=== PATIENT | female | born 1950 | race Caucasian/White ===

== ENCOUNTER 2018-04-21 09:51 | Observation (INO) | payer MEDICARE ==
[~2018-04-21] VITALS: Ht 162.6 cm; Wt 73.5 kg
[~2018-04-21 09:51] MED LIST: (None)10 MG OR; ASPIRIN EC81 MG PO; ATIVAN1 M1 OR; ATIVAN1 MG PO; CELEXA20 MG OR; CHILD ASA81 MG OR; CIPRO500 MG OR; CRESTOR10 MG PO; ELAVIL25 MG PO; LEVEMIR SC; LEXAPRO10 MG PO; LEXAPRO20 MG OR; LEXAPRO20 MG PO; LISINOPRIL10 MG PO; LORTAB 1010 MG PO; METFORMIN1000 MG PO; METFORMIN500 M1 OR; METFORMIN500 M2 PO; METOPROL TAR25 MG OR; METOPROL TAR25 MG PO; NOVOLIN 70/30 SC; NOVOLIN N1000 UNITS SC; NOVOLIN R IJ; NOVOLIN R1000 UNITS SC; NOVOLIN SC; NOVOLOG MIX100 U/ML SC; NOVOLOG100 IU/1 M SC; PRAVACHOL40 MG OR; PRINIVIL5 MG OR
--- NOTE | 2018-04-21 10:09 | NUR ---
PATIENT AMBULATED TO ROOM WITH STEADY GAIT AND PHYSICIAN AT BEDSIDE FOR EVAL
[2018-04-21] MEDS ORDERED: TRESIBA FL100 UNIT/M SC (10:23)
[2018-04-21] MEDS ORDERED: ATIVAN0.5 MG PO (10:27)
[2018-04-21] MEDS ORDERED: VITAMIN D2000 UNI2 PO (10:28)
--- NOTE | 2018-04-21 10:28 | NUR ---
SBAR PRINTED TO FLOOR
--- NOTE | 2018-04-21 10:56 | NUR ---
Report given to GEORGE Bowden on MS.
--- NOTE | 2018-04-21 11:29 | NUR ---
Admission Note Report Given to: GEORGE STONE Transported by: X Wheelchair Stretcher Transported with: X Nurse Transporter X Patent IV O2 Child Care Development Specialist Pt. to MS via w/c awake and alert. No distress noted. IV patent. Site w/o redness and swelling
--- NOTE | 2018-04-21 11:35 | NUR ---
PT ADMITTED TO MED SURG ROM 280 VIA WHEELCHAIR FROM E.R. 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 WILL DISCUSS WITH MD ON ROUNDS, PT ALSO HAS A 24 HR GLUCOSE MONITORING SYSTEM IN PLACE, CURRENT BS IS 263 PER HER MONITOR. DECLINES OUR FINGER STICKS AT THIS TIME. CALL KEYES WITHIN REACH, ENCOURAGED TO CALL FOR ANY NEEDED ASSISTANCE, SPOUSE AT BEDSIDE, WILL CONTINUE TO MONITOR.
[2018-04-21 11:47] VITALS: BP 165/91
--- NOTE | 2018-04-21 12:15 | NUR ---
SET UP ASSIST PROVIDED FOR AFTERNOON MEAL.
--- NOTE | 2018-04-21 12:40 | NUR ---
INTO SEE PATIENT, PLAN OF CARE DISCUSSED, CALL KEYES WITHIN REACH, SPOUSE REMAINS AT BEDSIDE.
--- NOTE | 2018-04-21 14:30 | NUR ---
PT RESTING IN BED. OFFERS NO NEW COMPLAINTS, CALL KEYES WITHIN REACH, WILL CONTINUE TO MONITOR.
[2018-04-21 15:17] VITALS: BP 152/81
--- NOTE | 2018-04-21 16:26 | NUR ---
PT RESTING, EDUCATED REGARDING PAINMEDICATION PRN STATUS AND HER NEED TO REQUEST, PT VERBALIZES UNDERSTANDING AND STATES THAT SHE IS OK RIGHT NOW, NO CHANGE IN REPS STATUS, O2 REMAINS IN PLACE VIA NC, CALL KEYES WITHIN REACH
--- NOTE | 2018-04-21 17:57 | NUR ---
SET UP ASSIST PROVIDED FOR PM MEAL
[2018-04-21 19:12] VITALS: BP 152/71
--- NOTE | 2018-04-21 19:41 | NUR ---
BEDSIDE REPORT RECEIVED FROM GEORGE SCHROEDER. PT SITTING UP IN BED WITH VISITOR AT BEDSIDE; ALERT AND ORIENTED. C/O LEFT RIB PAIN 02/17; TORADOL GIVEN THROUGH IV; IV INFILTRATED DURING FLUSH AND REMOVED. RESPIRATIONS EVEN AND UNLABORED ON OXYGEN; EDUCATED ON TCDB AND TO CALL FOR ANY SOB OR CHANGE IN RESPIRATORY STATUS. PLAN OF CARE DISCUSSED. PT ENCOURAGED TO VERABLIZE CONCERNS. STATES UNDERSTANDING. SAFETY MEASURES IN PLACE. CALL LIGHT WITHIN REACH.
--- NOTE | 2018-04-21 20:07 | NUR ---
PT CURRENTLY DECLINING IV; TORADOL ORDER CHANGED TO IM PER .
--- NOTE | 2018-04-21 20:53 | NUR ---
PT HAS SELF BLOOD GLUCOSE MONITOR; CURRENTLY READS 206. PT STATES THAT SHE SELF ADMINISTERED 3 UNITS OF NOVOLOG. STATES THAT SHE WILL MANAGE HER BLOOD SUGARS SHE DOES AT HOME.
--- NOTE | 2018-04-22 00:01 | NUR ---
PT SITTING UP IN BED AWAKE; REQUESTED DECAF COFFEE. DENIES PAIN AND SOB. RESPIRATIONS EVEN AND UNLABORED ON OXYGEN. PT REMAINS WITHOUT IV SITE; AWARE OF PT'S DECLINE FOR NEW ONE AT THIS TIME. STAND BY ASSIST TO BATHROOM PT HAS VOIDED ONCE TODAY, SHE STATES THIS IS NORMAL FOR HER. SAFETY MEASURES IN PLACE. CALL LIGHT WITHIN REACH.
[2018-04-22 04:00] VITALS: BP 168/72
[2018-04-22 05:15] LABS: HEMATOCRIT 36.7 % (37.0-47.0); HEMOGLOBIN 12.2 g/dl (12.0-16.0); IMMATURE GRANULOCYTES 0.2 % (0.0-5.0); MEAN CELL VOLUME 93.1 fL CALC (80.0-100.0); MEAN CORPUSCULAR HGB CONC 33.2 g/L CALC (32.0-36.0); NEUT# 2.31 thou/uL (2.00-7.15); RED BLOOD COUNT 3.94 mill/uL (4.20-5.60); RED CELL DISTRI WIDTH 13.2 % (11.5-15.5)
--- NOTE | 2018-04-22 05:31 | NUR ---
PT BACK TO UNIT FROM 2V CXR; TRANSPORTED VIA WHEELCHAIR WITH [facility] STAFF; TOLERATED WELL. NO CHANGES IN CONDITION THROUGHOUT THE NIGHT. NO REQUESTS OR CONCERNS AT THIS TIME. CALL LIGHT WITHIN REACH.
[2018-04-22 05:41] LABS: ALBUMIN 2.9 g/dL (3.2-5.0); ALKALINE PHOSPHATASE 62 u/l (38-126); ANION GAP 11 (6-22 (CALC)); BILIRUBIN, TOTAL 0.5 mg/dL (0.0-1.4); BUN 10 mg/dL (8-23); BUN/CREATININE RATIO 19 (12-20 (CALC)); CARBON DIOXIDE 29 mmol/l (22-30); CHLORIDE 101 mmol/l (95-108); CREATININE 0.5 mg/dL (0.5-1.0); GFR > 60 ML/MIN (>=60 (CALC)); GFR FOR AFR.AMER. > 60 ML/MIN (>=60 (CALC)); MAGNESIUM 1.5 mg/dL (1.6-2.3); POTASSIUM 4.4 mmol/l (3.5-5.1); SGOT/AST 18 u/l (9-36); SGPT/ALT 21 u/l (11-66); SODIUM 136 mmol/l (137-146); TOTAL PROTEIN 5.3 g/dL (6.3-8.2)
--- NOTE | 2018-04-22 07:55 | NUR ---
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 O2 REMAINS IN USE AT 2L; CXR COMPLETED THIS AM AWAITING RESULTS, CALL KEYES WITHIN REACH; INSTRUCTED TO CALL FOR ANY NEEDED ASSISTANCE; SPOUSE AT BEDSIDE; SET UP ASSIST PROVIDED FOR AM MEAL.
--- NOTE | 2018-04-22 08:59 | NUR ---
AMBULATES IN ROOM TO BATHROOM WITH STEADY GAIT; SPOUSE REMAINS AT BEDSIDE, CALL KEYES WITHIN REACH
--- NOTE | 2018-04-22 09:43 | NUR ---
PT MEDICATED WITH TYLENOL PER HER REQUEST, SPOKE WITH PT REGARDING D/C PROCESS, AND FOLLOW CARE, SPOUSE REMAINS AT BEDSIDE, WILL CONTINUE TO MONITOR.
--- NOTE | 2018-04-22 11:12 | NUR ---
into see patient
--- NOTE | 2018-04-22 12:35 | NUR ---
SCRIPTS FOR DILAUDID, IBUPROFEN AND NEURONTIN GIVEN TO PT ALONG WITH I.S. AND INSTRUCTIONS ON USE, PT TO [facility] Evan CRISTINA NEXT FRIDAY.
--- NOTE | 2018-04-22 13:41 | NUR ---
SPOUSE REAMINS AT BEDSIDE, SLIGHTLY AGITATED AWAITING D/C ORDERS. COMFORT MEASURES PROVIDED, WILL CONTINUE TO MONITOR.
--- NOTE | 2018-04-22 13:56 | NUR ---
Discharge instructions given. Patient verbalizes understanding of same. Discharged in stable condition via Wheelchair to Home with Spouse. All belongings sent with pt.
== END 2018-04-22 13:58 | disposition home or self-care (01) ==
LOC: ED 09:51 → ED-I 10:17 → ED 10:17 → MS2 10:43
PROVIDERS: ADMIT Internal Medicine Nephrology; ATTEND Internal Medicine Nephrology
DX: S27.0XXA Traumatic pneumothorax, initial encounter (principal); T79.7XXA Traumatic subcutaneous emphysema, initial encounter; S22.42XA Multiple fractures of ribs, left side, initial encounter for closed fracture; I10 Essential (primary) hypertension; E10.9 Type 1 diabetes mellitus without complications; E78.5 Hyperlipidemia, unspecified; F32.9 Major depressive disorder, single episode, unspecified; E55.9 Vitamin D deficiency, unspecified; W19.XXXA Unspecified fall, initial encounter; Z98.84 Bariatric surgery status
CPT/HCPCS: J1650

== ENCOUNTER 2018-05-20 05:01 | Emergency (ER) | payer MEDICARE ==
[~2018-05-20] VITALS: Ht 162.6 cm; Wt 75.2 kg
[~2018-05-20 05:01] MED LIST changes: +ATIVAN0.5 MG PO; +TRESIBA FL100 UNIT/M SC; +VITAMIN D2000 UNI2 PO
[2018-05-20 05:35] LABS: URINE BILIRUBIN - DIPSTICK NEGATIVE (NEGATIVE); URINE BLOOD DIPSTICK LARGE (NEGATIVE); URINE COLOR YELLOW; URINE GLUCOSE - DIPSTICK NEGATIVE (NEGATIVE); URINE KETONE NEGATIVE (NEGATIVE); URINE NITRITE - DIPSTICK NEGATIVE (Negative); URINE PROTEIN - DIPSTICK 30 mg/dL (NEG-TRACE); URINE UROBILINOGEN - DIPSTICK 0.2 E.U./dL (0.2)
[2018-05-20 05:36] LABS: URINE CLARITY TURBID; URINE LEUK ESTERASE SMALL (NEGATIVE)
[2018-05-20 05:42] LABS: URINE BACTERIA FEW hpf; URINE SQUAMOUS EPITHELIAL CELL MODERATE EPI/hpf (0-FEW)
[2018-05-20] MEDS ORDERED: PYRIDIUM200 MG PO (06:03)
[2018-05-20] MEDS ORDERED: CIPROFLOXACN500 MG PO (06:03)
[2018-05-20 06:15] VITALS: BP 164/68
== END 2018-05-20 06:15 | disposition home or self-care (01) ==
LOC: ED 05:01
PROVIDERS: Emergency Medicine
DX: N39.0 Urinary tract infection, site not specified (principal); E11.9 Type 2 diabetes mellitus without complications; I10 Essential (primary) hypertension; B96.20 Unspecified Escherichia coli [E. coli] as the cause of diseases classified elsewhere

== ENCOUNTER 2018-06-20 13:46 | Emergency (ER) | payer MEDICARE ==
[~2018-06-20] VITALS: Ht 162.6 cm; Wt 75.0 kg
[~2018-06-20 13:46] MED LIST changes: +CIPROFLOXACN500 MG PO; +PYRIDIUM200 MG PO
[2018-06-20 15:53] LABS: URINE BILIRUBIN - DIPSTICK NEGATIVE (NEGATIVE); URINE BLOOD DIPSTICK TRACE-INTACT (NEGATIVE); URINE CLARITY CLEAR; URINE COLOR YELLOW; URINE GLUCOSE - DIPSTICK >=1000 mg/dL (NEGATIVE); URINE KETONE NEGATIVE (NEGATIVE); URINE LEUK ESTERASE NEGATIVE (NEGATIVE); URINE NITRITE - DIPSTICK NEGATIVE (Negative); URINE PROTEIN - DIPSTICK NEGATIVE (NEG-TRACE); URINE SPECIFIC GRAVITY 1.015; URINE UROBILINOGEN - DIPSTICK 0.2 E.U./dL (0.2)
[2018-06-20 16:01] LABS: HEMATOCRIT 40.9 % (37.0-47.0); HEMOGLOBIN 13.2 g/dl (12.0-16.0); MEAN CELL VOLUME 95.8 fL CALC (80.0-100.0); MEAN CORPUSCULAR HGB 30.9 pG CALC (26.0-32.0); MEAN CORPUSCULAR HGB CONC 32.3 g/L CALC (32.0-36.0); NEUT# 3.46 thou/uL (2.00-7.15); RED BLOOD COUNT 4.27 mill/uL (4.20-5.60); RED CELL DISTRI WIDTH 12.6 % (11.5-15.5)
[2018-06-20 16:07] LABS: ALBUMIN 3.7 g/dL (3.2-5.0); ALKALINE PHOSPHATASE 66 u/l (38-126); ANION GAP 9 (6-22 (CALC)); BILIRUBIN, TOTAL 0.4 mg/dL (0.0-1.4); BUN 10 mg/dL (8-23); BUN/CREATININE RATIO 15 (12-20 (CALC)); CARBON DIOXIDE 30 mmol/l (22-30); CHLORIDE 106 mmol/l (95-108); CREATININE 0.6 mg/dL (0.5-1.0); GFR > 60 ML/MIN (>=60 (CALC)); GFR FOR AFR.AMER. > 60 ML/MIN (>=60 (CALC)); POTASSIUM 4.8 mmol/l (3.5-5.1); SGOT/AST 22 u/l (9-36); SODIUM 140 mmol/l (137-146); TOTAL PROTEIN 6.3 g/dL (6.3-8.2)
[2018-06-20 16:46] VITALS: BP 185/70
[2018-06-20] MEDS ORDERED: ANTIVERT PO (16:51)
== END 2018-06-20 16:59 | disposition home or self-care (01) ==
LOC: ED 13:46
PROVIDERS: Emergency Medicine
DX: R42 Dizziness and giddiness (principal); R51 Headache; E11.9 Type 2 diabetes mellitus without complications; I10 Essential (primary) hypertension; Z98.84 Bariatric surgery status